=== PATIENT | female | born 1955 ===

== ENCOUNTER 2020-12-29 06:00 | Outpatient (RCR) | payer MEDICARE, MEDICAID, SELFPAY | END 2020-12-29 23:59 | disposition home or self-care (01) | LOC: SST 06:00 | PROVIDERS: Referring Provider Family Medicine Sports Medicine; Visit Provider Family Medicine Sports Medicine | DX: R13.10 Dysphagia, unspecified (principal) | CPT/HCPCS: 92607; 92608 ==